=== PATIENT | female | born 1955 | race Caucasian/White ===

== ENCOUNTER 2023-12-12 19:10 | Observation (INO) | payer MEDICARE, SELFPAY ==
[2023-12-12] VITALS (10 sets, daily range): BP systolic 109–128; BP diastolic 50–66; PULSE 47–63; RESP 16–18; TEMP 36.8–36.9; O2SAT 96–99
--- NOTE | 2023-12-12 20:25 | ED.SKABFB ---
HPI - Skin/Abscess/Foreign Bdy General Chief complaint: Skin/Abscess/Foreign Body Stated complaint: rt middle toe, foot and leg infection, states MRSA Time Seen by Provider: 12/12/23 19:44 Source: patient Mode of arrival: Ambulatory Limitations: no limitations History of Present Illness HPI narrative: Patient is a 68-year-old female who is here for evaluation of a infection to the right middle toe. She stated that symptoms initially started when she was dealing with a hang nail to the 3rd toe of the right foot. She started have redness and swelling to the area afterwards. She has been seen by her primary doctor. She states that there was a culture obtained. It grew out staph aureus. She was completed a course of Augmentin. She was currently on Bactrim and has been on Bactrim for the past couple days but states that the redness is getting worse. She now has swelling in her right leg up to her right groin and feels like that she was lymph nodes in her right groin region. She has been ambulatory. No fevers. Related Data Home Medications Medication Instructions Recorded Confirmed hydroxyurea 500 mg capsule PO 12/12/23 12/12/23 sulfamethoxazole 800 1 tab PO BID 12/12/23 12/12/23 mg-trimethoprim 160 mg tablet Allergies Allergy/AdvReac Type Severity Reaction Status Date / Time No Known Drug Allergies Allergy Unverified 12/12/23 15:30 Review of Systems Review of Systems ROS Unobtainable: All systems reviewed & are unremarkable except as noted in HPI and below Patient History Medical History Polycythemia Social History household members: spouse Smoking Status: Never smoker Smoking Status: Never smoker Substance Use Type: does not use Exam Initial Vital Signs Initial Vital Signs: Vital Signs Temperature 98.4 F 12/12/23 19:20 Pulse Rate 59 L 12/12/23 19:20 Respiratory Rate 16 12/12/23 19:20 Blood Pressure 128/61 12/12/23 19:20 Pulse Oximetry 97 12/12/23 19:20 Oxygen Delivery Method Room Air 12/12/23 19:20 HENMT Head: normal to inspection and normocephalic Resp Effort & Inspection: normal respiratory effort Cardio Pulses: dorsalis pedis present on the right Skin Other: Patient with no obvious infection to the 3rd toe of the right foot. This wound was cultured. She has redness involving the entire aspect of the 3rd toe but also in the dorsum of the right foot. There is also redness and warmth in the medial aspect of the right distal tibia. She also has redness and warmth to the medial aspect of the proximal thigh with lymph nodes in this area. Neuro General: patient alert, patient awake, patient oriented x3 and moves all extremities Sensory Exam: no sensory deficits noted Extrem Other: Hives infection to the 3rd toe of the right foot. Scores GCS Bernardo coma scale eye opening: Spontaneous [place] coma scale verbal response: Orientated Bern[place] coma scale motor response: Obey commands [place] coma scale total score: 15 Course Orders Ordered: ED Orders 12/12/23 20:20 Wound Culture and Gram Stain Stat 12/12/23 20:25 XR foot RT min 3V Stat 12/12/23 20:40 Complete Blood Count AUTO DIFF Stat Comprehensive Metabolic Panel Stat Lactate (Lactic Acid) Stat Lipase Stat Procalcitonin Stat 12/12/23 21:02 Blood Culture Stat Discontinued Medications Vancomycin HCl (Vancomycin) 1,000 mg in 200 mls @ 200 mls/hr IV NOW ONE Stop: 12/12/23 21:25 Last Infusion: 12/12/23 22:06 Dose: Infused Documented By: Admin: 12/12/23 21:00 Dose: 200 mls/hr Documented By: Vital Signs Vital signs: Vital Signs - 8 hr 12/12/23 19:20 12/12/23 19:20 12/12/23 19:21 Temperature 98.4 F Pulse Rate 59 L 63 54 L Respiratory Rate 16 Blood Pressure 128/61 Pulse Oximetry 97 96 96 Oxygen Delivery Method Room Air 12/12/23 19:21 12/12/23 19:30 12/12/23 20:00 Temperature Pulse Rate 51 L 51 L Respiratory Rate Blood Pressure 128/61 Pulse Oximetry 96 96 Oxygen Delivery Method 12/12/23 21:04 12/12/23 21:05 12/12/23 21:05 Temperature Pulse Rate 47 L 48 L Respiratory Rate Blood Pressure 122/62 Pulse Oximetry 99 98 Oxygen Delivery Method MDM - Skin/Abscess/Foreign Bdy Lab Data Attestation: I reviewed the patient's lab results. 12/12/23 20:40 12/12/23 20:40 Labs: Lab Results 12/12/23 Range/Units 20:40 WBC 14.7 H (4.5-11.0) X10^3/uL RBC 3.49 L (4.0-5.2) X10^6/uL Hgb 13.8 (12.0-16.0) g/dL Hct 40.4 (36-46) % MCV 115.5 H (80-100) fL MCH 39.4 H (26-34) PG MCHC 34.1 (30-36) % RDW 13.4 (11.6-14.8) % Plt Count 468 H (150-400) X10^3/uL Neut % (Auto) 89.2 H (50-75) % Lymph % (Auto) 7.8 L (25-40) % [place] % (Auto) 1.8 L (3-14) % Eos % (Auto) 0.4 L (2-4) % Baso % (Auto) 0.8 (0-2) % Neut # (Auto) 33976 H (8803-3586) /uL Lymph # (Auto) 1200 (8291-2305) /uL [place] # (Auto) 300 (0-900) /uL Eos # (Auto) 100 (0-450) /uL Baso # (Auto) 100 (0-100) /uL RBC Morphology See below Macrocytosis 2+ H Sodium 139 (137-145) mmol/L Potassium 3.9 (3.4-5.1) mmol/L Chloride 103 (98-107) mmol/L Carbon Dioxide 27 (22-32) mmol/L BUN 19 H (7-17) mg/dL Creatinine 0.85 (0.52-1.04) mg/dL Estimated GFR > 60 (>60) mL/min BUN/Creatinine Ratio 22.4 H (6-22) Glucose 93 (80-110) mg/dL Lactate 1.0 (0.7-2.1) mmol/L Calcium 9.7 (8.4-10.2) mg/dL Total Bilirubin 0.4 (0.2-1.3) mg/dL AST 32 (14-36) IU/L ALT 14 (<35) IU/L Alkaline Phosphatase 103 (38-126) U/L Total Protein 7.5 (6.3-8.2) g/dL Albumin 4.6 (3.5-5.0) g/dL Globulin 2.9 (1.7-4.1) g/dL Albumin/Globulin Ratio 1.6 (1.0-2.8) Lipase 147 (23-300) U/L Procalcitonin 0.070 (<0.5) ng/mL Imaging Data Extremity x-ray #1: Radiologist's Impression: PROCEDURE: XR FOOT RT MIN 3V INDICATIONS: 3rd toe infection TECHNIQUE: 3 views of the foot were acquired. COMPARISON: None. FINDINGS: Bones: No fractures or dislocations. Tiny ossific density is seen lateral to the 3rd middle phalanx. No suspicious bony lesions. Soft tissues: No tibiotalar joint effusion. Achilles tendon appears normal. IMPRESSION: No acute findings are seen. Tiny ossific density seen lateral to the 3rd middle phalanx of uncertain etiology or clinical significance. Consider follow-up radiograph to assess stability or comparison to prior imaging if available. MDM Narrative Medical decision making narrative: X-ray does not show indication of osteomyelitis. She does have a leukocytosis. She was afebrile. Has not been hypotensive. She was failed outpatient treatment of both Augmentin and Bactrim. I do not have the results two view from myself however patient states that a prior culture was staph aureus. She was given vancomycin here in the ER. I did discuss the case with Dr. Dubose hospitalist on-call who will admit for IV antibiotics. Discussed the need for admission with the patient. She expressed understanding and agreement with plan. Discharge Plan Departure Patient Disposition: Admitted As Inpatient Clinical Impression: Cellulitis Admit Date/Time: 12/12/23 21:26 Admit Provider: Guillermo Dubose
[2023-12-12 20:58] LABS: Add Manual Diff / Slide Review SLIDE REVIEW; Basophils Absolute Auto 100 /uL (0-100); Basophils Percent Auto 0.8 % (0-2); Eosinophils Absolute Auto 100 /uL (0-450); Eosinophils Percent Auto 0.4 % (2-4); Hematocrit 40.4 % (36-46); Hemoglobin 13.8 g/dL (12.0-16.0); Lymphocytes Absolute Auto 1200 /uL (1100-4500); Lymphocytes Percent Auto 7.8 % (25-40); Mean Corpuscular HGB Conc 34.1 % (30-36); Mean Corpuscular Hemoglobin 39.4 PG (26-34); Mean Corpuscular Volume 115.5 fL (80-100); Monocytes Absolute Auto 300 /uL (0-900); Monocytes Percent Auto 1.8 % (3-14); Neutrophils Absolute Auto 13200 /uL (1500-7000); Neutrophils Percent Auto 89.2 % (50-75); Platelet Count 468 X10^3/uL (150-400); Red Blood Cell Count 3.49 X10^6/uL (4.0-5.2); Red Cell Distribution Width 13.4 % (11.6-14.8); White Blood Cell Count 14.7 X10^3/uL (4.5-11.0)
[2023-12-12] MEDS: VANCOMYCIN 1,000 MG/200 ML PIGGYBACK 200 MG IV (21:00)
[2023-12-12 21:04] LABS: Alanine Aminotransferase 14 IU/L (<35); Albumin 4.6 g/dL (3.5-5.0); Albumin Globulin Ratio 1.6 (1.0-2.8); Alkaline Phosphatase 103 U/L (38-126); Aspartate Aminotransferase 32 IU/L (14-36); BUN Creatinine Ratio 22.4 (6-22); Bilirubin Total 0.4 mg/dL (0.2-1.3); Blood Urea Nitrogen 19 mg/dL (7-17); Calcium 9.7 mg/dL (8.4-10.2); Carbon Dioxide 27 mmol/L (22-32); Chloride 103 mmol/L (98-107); Estimated Glomerular Filt Rate > 60 mL/min (>60); Globulin 2.9 g/dL (1.7-4.1); Glucose 93 mg/dL (80-110); HEMOLYSIS < 15 (0-50); Lipase 147 U/L (23-300); Potassium 3.9 mmol/L (3.4-5.1); Sodium 139 mmol/L (137-145); Total Protein 7.5 g/dL (6.3-8.2)
[2023-12-12 21:32] LABS: Macrocytosis 2+
[2023-12-13] MEDS: ACETAMINOPHEN 325 MG TABLET 650 MG PO (01:48)
[2023-12-13] MEDS: IBUPROFEN 400 MG TABLET PO (01:49)
[2023-12-13 02:00] VITALS: BP 108/52; PULSE 58; RESP 16; TEMP 36.5; O2SAT 96
--- NOTE | 2023-12-13 05:39 | P.HP_ITS ---
History of Present Illness History of Present Illness Date Patient Seen: 12/13/23 Time Patient Seen: 01:12 Chief complaint: rt middle toe, foot and leg infection, states MRSA Narrative: 68 years old female with a past medical history of polycythemia was initially evaluated by primary physician in the outpatient setting for infection of the right middle toe. There was some concerns for acute lymphangitis of the right lower extremity and initially given Augmentin with subsequent switch to oral Bactrim based on culture reports. Apparently cultures are growing Staph aureus and due to persistent symptoms even with oral Bactrim patient was brought to the emergency room. The erythema now extends up to the right lower extremity/groin region with lymph nodes being palpable. Currently denies any fever episodes. Denies any headache or vision diplopia. Denies any sore throat nasal congestion or upper respiratory symptoms. Denies any shortness of breath. Denies any abdominal pain or nausea vomiting. Subsequent workup in the emergency room showed a white count of 14.7 with a hemoglobin of 13.8 and a platelet count of 468. Sodium is 139 with a BUN of 19 and a creatinine of 0.85. Lactate is 1.0. Liver enzymes are normal. Procalcitonin is 0.070. Foot x-ray shows ossific density in the third middle phalanx of uncertain etiology. Patient was initiated on IV vancomycin and admitted for further evaluation [facility] Medical History Polycythemia Social History household members: spouse Smoking Status: Never smoker Meds Home Medications and Allergies Home Medications Medication Instructions Recorded Confirmed Type hydroxyurea 500 mg capsule PO 12/12/23 12/12/23 History sulfamethoxazole 800 1 tab PO BID 12/12/23 12/12/23 History mg-trimethoprim 160 mg tablet aspirin 81 mg chewable tablet 81 mg PO QAM 12/13/23 12/13/23 History hydroxyurea 500 mg capsule 1,500 mg PO QPM polycethemia vera 12/13/23 12/13/23 History Allergies Allergy/AdvReac Type Severity Reaction Status Date / Time No Known Drug Allergies Allergy Unverified 12/12/23 15:30 Review of Systems Review of Systems Narrative: 12 point review of systems negative unless otherwise stated in the history of present illness Exam Vital Signs (past 8 hours): - 12/12/23 22:00 12/12/23 22:00 12/12/23 22:15 Temperature 98.2 F Pulse Rate 48 L 49 L Respiratory Rate 18 18 Blood Pressure 113/64 125/66 Pulse Oximetry 98 98 Oxygen Delivery Method Room Air 12/12/23 22:20 12/12/23 22:33 12/13/23 02:00 Temperature 98.2 F 97.7 F Pulse Rate 49 L 58 L Respiratory Rate 16 16 Blood Pressure 109/50 L 108/52 L Pulse Oximetry 98 96 Oxygen Delivery Method Room Air Oxygen Delivery Method Room Air Narrative Exam Narrative: Patient is awake and does not appear to be in acute distress. Rhythm noted extending from the foot up to the knee Air entry equal bilaterally no wheezes no crackles Objective Labs 12/12/23 20:40 12/12/23 20:40 Labs: Laboratory Results - last 24 hr 12/12/23 20:40 WBC 14.7 H RBC 3.49 L Hgb 13.8 Hct 40.4 MCV 115.5 H MCH 39.4 H MCHC 34.1 RDW 13.4 Plt Count 468 H Neut % (Auto) 89.2 H Lymph % (Auto) 7.8 L [place] % (Auto) 1.8 L Eos % (Auto) 0.4 L Baso % (Auto) 0.8 Neut # (Auto) 55329 H Lymph # (Auto) 1200 [place] # (Auto) 300 Eos # (Auto) 100 Baso # (Auto) 100 RBC Morphology See below Macrocytosis 2+ H Sodium 139 Potassium 3.9 Chloride 103 Carbon Dioxide 27 BUN 19 H Creatinine 0.85 Estimated GFR > 60 BUN/Creatinine Ratio 22.4 H Glucose 93 Lactate 1.0 Calcium 9.7 Total Bilirubin 0.4 AST 32 ALT 14 Alkaline Phosphatase 103 Total Protein 7.5 Albumin 4.6 Globulin 2.9 Albumin/Globulin Ratio 1.6 Lipase 147 Procalcitonin 0.070 Assessment & Plan Assessment & Plan narrative: 68 years old female with a past medical history of polycythemia was initially evaluated by primary physician in the outpatient setting for infection of the right middle toe. There was some concerns for acute lymphangitis of the right lower extremity and initially given Augmentin with subsequent switch to oral Bactrim based on culture reports. Apparently cultures are growing Staph aureus and due to persistent symptoms even with oral Bactrim patient was brought to the emergency room. The erythema now extends up to the right lower extremity/groin region with lymph nodes being palpable. Currently denies any fever episodes. Denies any headache or vision diplopia. Denies any sore throat nasal congestion or upper respiratory symptoms. Denies any shortness of breath. Denies any abdominal pain or nausea vomiting. Subsequent workup in the emergency room showed a white count of 14.7 with a hemoglobin of 13.8 and a platelet count of 468. Sodium is 139 with a BUN of 19 and a creatinine of 0.85. Lactate is 1.0. Liver enzymes are normal. Procalcitonin is 0.070. Foot x-ray shows ossific density in the third middle phalanx of uncertain etiology. Patient was initiated on IV vancomycin and admitted for further evaluation 1. Left lower extremity cellulitis with concern for acute lymphangitis that is not responding to outpatient management. Continue IV vancomycin initiated in the emergency room. Place a marker and trend the infectious progression. Follow-up with the Doppler arterial of the lower extremity and also venous Doppler of the lower extremity to rule out a vascular pathology. Follow wound cx and Trend the levels closely 2 Pain the left lower extremity. Acetaminophen/ibuprofen per patient preference 3 DVT prophylaxis will be Lovenox 4 history of polycythemia on home hydroxyurea Patient will be admitted under inpatient status given the failed outpatient management and the need for IV antibiotics. Expected length of stay is greater than 2 midnights Patient was evaluated with the help of her video communication device. Location of the patient is [facility] in [facility] Time-Based Coding :: [TOTAL MINUTES] spent with patient and on the chart (including review of chart, obtaining history, exam, reviewing outside data, placing orders, documenting exam and treatment plan, and counseling patient) on [DATE].
--- NOTE | 2023-12-13 05:42 | DI.US.S_ITS ---
PROCEDURE: US PERIPH VENOUS LOW EXTREM BI INDICATIONS: pain TECHNIQUE: Real-time imaging, as well as color and pulse Doppler interrogation, were performed of the deep veins of both legs from the inguinal ligament to the popliteal fossa, with documentation of the visualized calf veins. COMPARISON: None. FINDINGS: Right: The common femoral, femoral, popliteal, and the visualized calf veins are normally compressible, and free of intraluminal thrombus. Color and pulse Doppler demonstrate normal phasic intravascular flow. There is normal augmentation response to distal compression maneuver. Left: The common femoral, femoral, popliteal, and the visualized calf veins are normally compressible, and free of intraluminal thrombus. Color and pulse Doppler demonstrate normal phasic intravascular flow. There is normal augmentation response to distal compression maneuver. Multiple prominent bilateral inguinal lymph nodes measuring up 0.5-1 cm in short axis. Subcutaneous edema bilaterally. IMPRESSION: 1. No findings of deep venous thrombosis in either lower extremity. 2. Multiple prominent/borderline enlarged bilateral inguinal lymph nodes measuring up to 0.5-1 cm in short axis which are nonspecific and may be reactive. Dictated by: Rohini Cuenca M.D. on 12/13/2023 at 8:30 Approved by: Rohini Cuenca M.D. on 12/13/2023 at 8:31
[2023-12-13 05:44] LABS: Basophils Absolute Auto 100 /uL (0-100); Basophils Percent Auto 1.2 % (0-2); Eosinophils Absolute Auto 100 /uL (0-450); Eosinophils Percent Auto 0.8 % (2-4); Hematocrit 37.8 % (36-46); Hemoglobin 12.9 g/dL (12.0-16.0); Lymphocytes Absolute Auto 1000 /uL (1100-4500); Lymphocytes Percent Auto 8.1 % (25-40); Mean Corpuscular HGB Conc 34.2 % (30-36); Mean Corpuscular Hemoglobin 39.2 PG (26-34); Mean Corpuscular Volume 114.7 fL (80-100); Monocytes Absolute Auto 200 /uL (0-900); Monocytes Percent Auto 1.7 % (3-14); Neutrophils Absolute Auto 10600 /uL (1500-7000); Neutrophils Percent Auto 88.2 % (50-75); Platelet Count 409 X10^3/uL (150-400); Red Blood Cell Count 3.29 X10^6/uL (4.0-5.2); Red Cell Distribution Width 13.5 % (11.6-14.8)
--- NOTE | 2023-12-13 05:46 | DI.US.S_ITS ---
PROCEDURE: US ARTERIAL DUPLEX LE BI INDICATIONS: pain TECHNIQUE: Color and pulse Doppler interrogation was performed of both lower extremity arterial systems, with image documentation. COMPARISON: None. FINDINGS: Right lower extremity: Common femoral artery: 103 cm/sec, with triphasic flow. Deep femoral artery: 72 cm/sec, with triphasic flow. Proximal superficial femoral artery: 98 cm/sec, with triphasic flow. Mid superficial femoral artery: 122 cm/sec, with triphasic flow. Distal superficial femoral artery: 86 cm/sec, with triphasic flow. Popliteal artery: 65 cm/sec, with triphasic flow. Posterior tibial artery: 87 cm/sec, with biphasic flow. Anterior tibial artery/dorsalis pedis: 94 cm/sec, with triphasic flow. Bennett-scale imaging description: Minimal scattered atherosclerotic plaque. Small Quiñonez's cyst in the popliteal fossa. Left lower extremity: Common femoral artery: 95 cm/sec, with triphasic flow. Deep femoral artery: 60 cm/sec, with triphasic flow. Proximal superficial femoral artery: 88 cm/sec, with triphasic flow. Mid superficial femoral artery: 109 cm/sec, with triphasic flow. Distal superficial femoral artery: 72 cm/sec, with triphasic flow. Popliteal artery: 67 cm/sec, with triphasic flow. Posterior tibial artery: 80 cm/sec, with triphasic flow. Anterior tibial artery/dorsalis pedis: 80 cm/sec, with triphasic flow. Bennett-scale imaging description: Minimal scattered atherosclerotic plaque. Small Quiñonez's cyst in the popliteal fossa. IMPRESSION: Multiphasic waveforms of the bilateral lower extremity arterial vasculature with no velocity shift to suggest a hemodynamically significant stenosis. Dictated by: Rohini Cuenca M.D. on 12/13/2023 at 8:31 Approved by: Rohini Cuenca M.D. on 12/13/2023 at 8:42
[2023-12-13 05:48] LABS: INR 1.2 (0.9-1.3); Prothrombin Time 13.9 SECONDS (9.4-12.5)
[2023-12-13 05:53] LABS: Alanine Aminotransferase 13 IU/L (<35); Albumin 3.7 g/dL (3.5-5.0); Albumin Globulin Ratio 1.3 (1.0-2.8); Alkaline Phosphatase 92 U/L (38-126); Aspartate Aminotransferase 25 IU/L (14-36); BUN Creatinine Ratio 21.4 (6-22); Bilirubin Total 0.5 mg/dL (0.2-1.3); Blood Urea Nitrogen 18 mg/dL (7-17); Calcium 8.9 mg/dL (8.4-10.2); Carbon Dioxide 27 mmol/L (22-32); Chloride 104 mmol/L (98-107); Estimated Glomerular Filt Rate > 60 mL/min (>60); Globulin 2.8 g/dL (1.7-4.1); Glucose 95 mg/dL (80-110); HEMOLYSIS < 15 (0-50); Magnesium 2.4 mg/dL (1.6-2.3); Phosphorous 4.2 mg/dL (2.8-4.1); Potassium 4.2 mmol/L (3.4-5.1); Sodium 136 mmol/L (137-145); Total Protein 6.5 g/dL (6.3-8.2)
[2023-12-13 06:02] LABS: NT-proBNP (BNP-Adult 18+) 448 pg/mL (<125)
[2023-12-13 06:21] LABS: Macrocytosis 2+
[2023-12-13] MEDS: ASPIRIN 81 MG CHEW TAB PO (08:11)
[2023-12-13] MEDS: ENOXAPARIN 40 MG/0.4 ML SYRINGE SUBCUT (08:11)
[2023-12-13] MEDS: VANCOMYCIN 1,000 MG/200 ML PIGGYBACK 200 MG IV ×2 (08:12→17:49)
[2023-12-13 09:01] VITALS: BP 98/62; PULSE 48; RESP 16; TEMP 36.8; O2SAT 96
--- NOTE | 2023-12-13 11:44 | PM.DS.1 ---
History of Present Illness History of Present Illness Date Patient Seen: 12/13/23 Time Patient Seen: 11:44 Chief complaint: rt middle toe, foot and leg infection, states MRSA Narrative: Per admitting provider, 68 years old female with a past medical history of polycythemia was initially evaluated by primary physician in the outpatient setting for infection of the right middle toe. There was some concerns for acute lymphangitis of the right lower extremity and initially given Augmentin with subsequent switch to oral Bactrim based on culture reports. Apparently cultures are growing Staph aureus and due to persistent symptoms even with oral Bactrim patient was brought to the emergency room. The erythema now extends up to the right lower extremity/groin region with lymph nodes being palpable. Currently denies any fever episodes. Denies any headache or vision diplopia. Denies any sore throat nasal congestion or upper respiratory symptoms. Denies any shortness of breath. Denies any abdominal pain or nausea vomiting. Subsequent workup in the emergency room showed a white count of 14.7 with a hemoglobin of 13.8 and a platelet count of 468. Sodium is 139 with a BUN of 19 and a creatinine of 0.85. Lactate is 1.0. Liver enzymes are normal. Procalcitonin is 0.070. Foot x-ray shows ossific density in the third middle phalanx of uncertain etiology. Patient was initiated on IV vancomycin and admitted for further evaluation Discharge Providers Provider Date of admission: 12/12/23 21:26 Discharge Date: 12/13/23 Primary care physician: Luiza Mujica PA-C Discharge provider: Wallace Carlson DO Summary Hospital Course Discharge Diagnosis: 1. R lower leg and foot cellulitis 2. Polycythemia vera, chronic, controlled. Hospital Course: This is a 68 year old female with PMH of polycythemia vera who presented with worsening RLE cellulitis. She had not improved despite antibiotics including change for MRSA coverage with bactrim 2 days prior to her presentation here. She has an outside culture that shows staph aureus, though no sensitivities are noted in the report. She had improvement with vancomycin only while in the hospital. Discussed continued observation vs discharge home, patient elected for discharge home after 3 doses of IV vancomycin (approx 36 hours of treatment) given improvement in swelling, pain, and redness. She was ambulatory without assistance. Given improvement, with lack of response to bactrim as an outpatient, she was discharged with Linezolid for another 10 days after discharge. Time Spent with Patient Time spent: Greater than 30 minutes Exam Vital Signs (past 8 hours): - 12/13/23 09:01 Temperature 98.3 F Pulse Rate 48 L Respiratory Rate 16 Blood Pressure 98/62 Pulse Oximetry 96 Oxygen Delivery Method Room Air Narrative Exam Narrative: Gen: no acute distress CV: RRR Ext: mild RLE edema, improving erythema above the ankle, nearly resolved. R 3rd toe with dorsal 1x2 cm area superficial wound and surrounding erythema which is regressing as well. Objective Labs 12/13/23 05:10 12/13/23 05:10 Labs: Laboratory Results - last 24 hr 12/12/23 12/13/23 20:40 05:10 WBC 14.7 H 12.0 H RBC 3.49 L 3.29 L Hgb 13.8 12.9 Hct 40.4 37.8 MCV 115.5 H 114.7 H MCH 39.4 H 39.2 H MCHC 34.1 34.2 RDW 13.4 13.5 Plt Count 468 H 409 H Neut % (Auto) 89.2 H 88.2 H Lymph % (Auto) 7.8 L 8.1 L [place] % (Auto) 1.8 L 1.7 L Eos % (Auto) 0.4 L 0.8 L Baso % (Auto) 0.8 1.2 Neut # (Auto) 67109 H 61270 H Lymph # (Auto) 1200 1000 L [place] # (Auto) 300 200 Eos # (Auto) 100 100 Baso # (Auto) 100 100 RBC Morphology See below See below Macrocytosis 2+ H 2+ H PT 13.9 H INR 1.2 Sodium 139 136 L Potassium 3.9 4.2 Chloride 103 104 Carbon Dioxide 27 27 BUN 19 H 18 H Creatinine 0.85 0.84 Estimated GFR > 60 > 60 BUN/Creatinine Ratio 22.4 H 21.4 Glucose 93 95 Lactate 1.0 Calcium 9.7 8.9 Phosphorus 4.2 H Magnesium 2.4 H Total Bilirubin 0.4 0.5 AST 32 25 ALT 14 13 Alkaline Phosphatase 103 92 NT-Pro-B Natriuret Pep 448 H Total Protein 7.5 6.5 Albumin 4.6 3.7 Globulin 2.9 2.8 Albumin/Globulin Ratio 1.6 1.3 Lipase 147 Procalcitonin 0.070 PFSH Medical History Polycythemia Social History household members: spouse Smoking Status: Never smoker Discharge Plan Discharge Plan Patient Disposition: Home Provider Discharge Comment: You were admitted to the hospital with a cellulitis of your right foot, improved with antibiotics. Complete new antibiotic for another 10 days. Discharge orders & Medications Prescriptions: New linezolid 600 mg tablet 600 mg PO Q12H 10 Days Qty: 20 0RF Continued hydroxyurea 500 mg capsule 1,500 mg PO QPM aspirin 81 mg Tablet,Chewable 81 mg PO QAM Follow up/Referrals: Luiza Mujica PA-C [Primary Care Provider] - Diet/Activity/Treatments Diet: Diet as Tolerated and Regular Activity: As tolerated, no restrictions. Skin/Wound/Dressing Care Skin care: continue to apply bacitracin or other antibiotic ointment (OTC) daily Dressing: continue dry gauze with ointment and either tape or pad under sock until healed. Change as needed. Visit Report/Discharge Packet Stand Alone Forms: Patient Portal/API, Stroke Signs & Symptoms Discharge Data Primary Care Provider: Luiza Mujica Attending Provider: Guillermo Dubose Admit Date/Time: 12/12/23 21:26
[2023-12-13] MEDS: NEOMYCIN/POLYMYXIN/BACITRA UD OINT 1 EACH TOP (13:28)
--- NOTE | 2023-12-13 14:16 | CM.DANOTE ---
Initial DCP Assessment Visit Note Reviewed EMR and team rounds for status updates. Met with pt and her friend at bedside to introduce self and role, pt was found to be sitting upright in her bed, alert/oriented, and able to discuss her preference for home d/c. She lives independently at baseline with her in [place], she was here with him and friends when her toe infection worsened, and she presented to the ED for further evaluation. Family/friends will transport her once she's medically cleared for home d/c. Payor: Medicare PCP (temporary): Luiza Mujica Pt is a 68 year-old presented to the ED last evening with an infection of her R-middle toe. She shared that it started with a hangnail and progressed to redness and swelling. Initial cultures were taken by her PCP a few weeks ago resulting as staph, took 2-courses of antibiotics but the wound worsened steadily even while on Bactrim. The redness and swelling has now moved up her leg and into her groin. Pt was started on IV ABO's, and the plan was made to admit to OBS for 1-2 nights of continued tx. DCP will continue to follow for any evolving needs, however at this time she is declining the need for any DCP needs/assistance. Discharge Planning/Care Management CM Discharge Assessment Start: 12/13/23 13:55 Freq: Status: Active Protocol: Document 12/13/23 13:55 DPL (Rec: 12/13/23 14:16 DPL [id number]) Discharge Planning Assessment Assigned [employer] GUILLERMINA Galvez Advance Directives? No History Provided By Patient,Medical Record Prior Living Arrangements House Household Members spouse Type of transporation used prior to Drives own vehicle admit Independent with ADL's Yes Is patient alert and oriented? Yes Caregiver for Another No Comment No identified d/c needs at this time. Barriers to Discharge No Discharge Plan Home Transportation Arrangement Friend Referrals Initiated None needed Whiteboard Updated in Patient Room with Yes name and ext. # of [employer] Comment 12/13/23 Review Status In Process Please Provide Date Initial DC 12/12/23 Assessment Was Performed
--- NOTE | 2023-12-20 08:08 | PC.NURSE ---
Late Entry: Vancomycin infusion initiated 12/12 at 1749 complete at 1850.
== END 2023-12-13 19:25 | disposition home or self-care (01) ==
LOC: ED 21:25 → AC 12-13 08:06
PROVIDERS: Admitting Provider Internal Medicine; Emergency Provider Emergency Medicine; PCP Physician Assistant; Referring Provider Emergency Medicine; Visit Provider Internal Medicine
DX: L03.115 Cellulitis of right lower limb (principal); B95.61 Methicillin susceptible Staphylococcus aureus infection as the cause of diseases classified elsewhere; D45 Polycythemia vera
CPT/HCPCS: 36415; 73630; 80053; 83605; 83690; 83735; 83880; 84100; 84145; 85025; 85610; 87040; 87070; 87075; 87077; 87186; 87205; 93925; 93970; 96365; 96366; 96372; 99284; G0378; J1650